=== PATIENT | female | born 1955 | race Caucasian/White ===

== ENCOUNTER 2019-10-28 12:00 | Inpatient (IN) | payer OTHER ==
[~2019-10-28] VITALS: Ht 157.5 cm; Wt 45.0 kg
[2019-10-28] MEDS ORDERED: PRAM0.128 PO (12:13)
[2019-10-28] MEDS ORDERED: CLON0.122 PO (12:13)
[2019-10-28] MEDS ORDERED: CARB25TA PO (12:13)
[2019-10-28] MEDS ORDERED: DIPHENHYDRAMINE 50MG/ML VIAL IV STA (13:36)
[2019-10-28 14:34] LABS: BASOPHILS % 0.4 % (0.0-2.0); EOSINOPHILS % 0.1 % (0.0-5.0); HEMATOCRIT. 36.9 % (36.0-48.0); HEMOGLOBIN. 12.3 g/dL (12.0-16.0); LYMPHOCYTES % 21.9 % (20.0-50.0); MEAN CORPUSCULAR HEMOGLOBIN 32.4 pg (28.0-32.0); MEAN PLATELET VOLUME 6.8 fl (7.4-10.4); MONOCYTES % 4.6 % (2.0-8.0); PLATELET 330 x1000/uL (130-400); RED BLOOD CELL COUNT 3.81 mill/uL (4.2-5.4); RED CELL DISTRIBUTION WIDTH 15.9 % (11.6-14.6)
[2019-10-28 14:40] LABS: CHLORIDE 110 mEq/L (98-107)
[2019-10-28 14:47] LABS: ETHANOL BLOOD < 10 mg/dL
[2019-10-28 14:50] LABS: CREATINE KINASE 96 IU/L (26-192)
[2019-10-28 15:11] LABS: CLARITY URINE CLEAR (CLEAR); COLOR URINE DARK YELLOW (YELLOW); KETONES URINE 1+ (NEGATIVE); LEUKOCYTE ESTERASE URINE NEGATIVE (NEGATIVE); NITRITE URINE NEGATIVE (NEGATIVE); OCCULT BLOOD URINE NEGATIVE (NEGATIVE); PH URINE 5.5 (4.5-8.0); PROTEIN URINE NEGATIVE (NEGATIVE); SPECIFIC GRAVITY URINE 1.016 (1.005-1.030); UROBILINOGEN URINE 0.2 E.U./dL (0.2-1.0)
[2019-10-28 15:24] LABS: *BARBITURATES SCREEN URINE NEGATIVE (NEGATIVE); *BENZODIAZEPINES SCREEN URINE NEGATIVE (NEGATIVE); *COCAINE SCREEN URINE NEGATIVE (NEGATIVE); METHADONE URINE SCREEN NEGATIVE (NEGATIVE); OPIATES URINE SCREEN NEGATIVE (NEGATIVE)
[2019-10-28 15:25] LABS: *AMPHETAMINES SCREEN URINE NEGATIVE (NEGATIVE); CANNABINOID URINE SCREEN PRESUMTIVE POSITIVE (NEGATIVE); PHENCYCLIDINE URINE SCREEN NEGATIVE (NEGATIVE)
[2019-10-28] MEDS ORDERED: LORAZEPAM 2MG/ML CPJ IV NR (17:15)
[2019-10-28] MEDS ORDERED: DIPHENHYDRAMINE 50MG/ML VIAL IV ONE (18:15)
[2019-10-28] MEDS ORDERED: CLONIDINE 0.1MG TABLET PO PRN (20:45)
[2019-10-28] MEDS ORDERED: LORAZEPAM 2MG/ML CPJ IV PRN (20:45)
[2019-10-28] MEDS ORDERED: ONDANSETRON HCL 4MG/2ML INJ IV PRN (20:45)
[2019-10-28] MEDS ORDERED: ACETAMINOPHEN 325MG TABLET PO PRN (20:45)
[2019-10-28] MEDS ORDERED: MAGNESIUM/ALUMINUM HYDROXIDE/SIMETHICONE 30ML UDC PO PRN (20:45)
[2019-10-28] MEDS ORDERED: HALOPERIDOL LACTATE 5MG/ML VIAL IM ONE (21:00)
[2019-10-28] MEDS ORDERED: ENOXAPARIN 40MG/0.4ML SYR SUBCUT NR (23:15)
[2019-10-28 23:50] VITALS: BP 170/89
[2019-10-29] VITALS: BP 170/89
[2019-10-29] MEDS ORDERED: CARB1TAB13 PO (01:09)
[2019-10-29] MEDS ORDERED: GLUC-113 PO (01:09)
[2019-10-29] MEDS ORDERED: IBUP-2271 PO (01:09)
[2019-10-29] MEDS ORDERED: TOPUD PO (01:09)
[2019-10-29] MEDS ORDERED: CLON2TAB21 PO (01:09)
[2019-10-29] MEDS ORDERED: PRAM0.128 PO (01:09)
[2019-10-29 04:00] VITALS: BP 115/66
[2019-10-29] MEDS: BACLOFEN 10MG TABLET PO SCH ×3 (06:14→21:00)
[2019-10-29 07:47] LABS: BASOPHILS % 0.7 % (0.0-2.0); EOSINOPHILS % 0.5 % (0.0-5.0); HEMATOCRIT. 37.2 % (36.0-48.0); HEMOGLOBIN. 12.3 g/dL (12.0-16.0); LYMPHOCYTES % 30.4 % (20.0-50.0); MEAN CORPUSCULAR HEMOGLOBIN 32.5 pg (28.0-32.0); MEAN PLATELET VOLUME 6.8 fl (7.4-10.4); MONOCYTES % 8.4 % (2.0-8.0); PLATELET 338 x1000/uL (130-400); RED BLOOD CELL COUNT 3.79 mill/uL (4.2-5.4); RED CELL DISTRIBUTION WIDTH 15.9 % (11.6-14.6)
[2019-10-29 07:57] LABS: CHLORIDE 112 mEq/L (98-107)
[2019-10-29 08:00] VITALS: BP 138/87
[2019-10-29] MEDS: ASPIRIN 81MG EC TABLET PO SCH (09:35)
[2019-10-29] MEDS: AMLODIPINE 10MG TABLET PO SCH (09:36)
[2019-10-29 12:00] VITALS: BP 129/76
[2019-10-29] MEDS: CARBIDOPA/LEVODOPA 25/100MG TABLET PO SCH ×2 (14:50→21:00)
[2019-10-29 16:00] VITALS: BP 116/73
[2019-10-29 20:00] VITALS: BP 122/70
[2019-10-29] MEDS: ENOXAPARIN 40MG/0.4ML SYR SUBCUT SCH (21:00)
[2019-10-30] VITALS: BP 130/74
[2019-10-30 04:00] VITALS: BP 133/100
[2019-10-30] MEDS: BACLOFEN 10MG TABLET PO SCH ×3 (05:26→22:00)
[2019-10-30] MEDS: CARBIDOPA/LEVODOPA 25/100MG TABLET PO SCH ×3 (05:26→22:00)
[2019-10-30 08:00] VITALS: BP 122/78
[2019-10-30] MEDS: ASPIRIN 81MG EC TABLET PO SCH (08:50)
[2019-10-30] MEDS: AMLODIPINE 10MG TABLET PO SCH (08:50)
[2019-10-30 12:00] VITALS: BP 123/68
[2019-10-30 16:00] VITALS: BP 123/69
[2019-10-30 20:00] VITALS: BP 125/65
[2019-10-30] MEDS: ENOXAPARIN 40MG/0.4ML SYR SUBCUT SCH (21:00)
[2019-10-31] VITALS: BP 126/65
[2019-10-31 04:00] VITALS: BP 137/49
[2019-10-31] MEDS: BACLOFEN 10MG TABLET PO SCH (07:02)
[2019-10-31] MEDS: CARBIDOPA/LEVODOPA 25/100MG TABLET PO SCH ×2 (07:02→13:22)
[2019-10-31 08:00] VITALS: BP 132/74
[2019-10-31 09:04] VITALS: BP 132/74
[2019-10-31] MEDS: AMLODIPINE 10MG TABLET PO SCH (10:04)
[2019-10-31] MEDS: ASPIRIN 81MG EC TABLET PO SCH (10:04)
[2019-10-31 12:00] VITALS: BP 134/73
[2019-10-31 13:36] VITALS: BP 134/73
== END 2019-10-31 15:10 | disposition home or self-care (01) | DRG 72 ==
LOC: ER 13:22 → 5WST 22:36 → EDBEDREQTM 22:40 → EDBEDREQ 22:40 → ENRESERV 23:08
PROVIDERS: ADMIT Hospitalist; ATTEND Hospitalist
DX: G93.40 Encephalopathy, unspecified (principal); G20 Parkinson's disease; G24.9 Dystonia, unspecified; G25.2 Other specified forms of tremor; Z79.899 Other long term (current) drug therapy
CPT/HCPCS: 36415; 70551; 71045; 73502; 80053; 80305; 80307; 80320; 80329; 81003; 82140; 82390; 82550; 84443; 84484; 85025; 93005; 97162; 97166; 97530; J1200; J1630; J1650; J2060; G0480